=== PATIENT | female | born 1985 | race American Indian/Alaskan Native ===

== ENCOUNTER 2018-02-20 06:55 | Emergency (ER) | payer OTHER, MEDICAID ==
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
[2018-02-20 14:03] VITALS: BP 128/72
== END 2018-02-20 14:01 | disposition home or self-care (01) ==
LOC: ED 06:55
DX: O9A.212 Injury, poisoning and certain other consequences of external causes complicating pregnancy, second trimester (principal); S16.1XXA Strain of muscle, fascia and tendon at neck level, initial encounter; R10.9 Unspecified abdominal pain; Z3A.14 14 weeks gestation of pregnancy; V89.2XXA Person injured in unspecified motor-vehicle accident, traffic, initial encounter; Y93.89 Activity, other specified; Y92.488 Other paved roadways as the place of occurrence of the external cause; Y99.8 Other external cause status
CPT/HCPCS: 36415; 76805; 84702; 99284

== ENCOUNTER 2018-08-29 16:22 | Inpatient (IN) | payer MEDICAID ==
--- NOTE | 2018-08-29 16:48 | Emergency Department Report ---
ED Shortness of Breath HPI - General Chief Complaint: Dyspnea/Respdistress Stated Complaint: SOB/DELIVERED LAST WK Time Seen by Provider: 08/29/18 16:43 Source: patient Mode of arrival: Ambulatory Limitations: No Limitations - History of Present Illness Initial Comments: Patient is a 33-year-old female that presents emergent with complaints of chest pain and shortness of breath. Patient states that chest pain is a 2 out of 10 and is mild. Patient states chest pain is centered in her chest and nonradiating. Patient states it started 3 days ago and patient's been using her albuterol inhaler that she have from a previous illness with no relief. Patient states her chest pain and shortness of breath are better with rest and worse with exertion. Patient states that she recently had a baby on the of this month via that was unconjugated. Patient states that her symptoms are worsening. Patient states she came in because her symptoms are unmanageable. Patient denies fever and chills. Patient states she is breast-feeding. Patient denies history of asthma. MD Complaint: shortness of breath, chest pain -: Sudden Severity: mild Pain Scale: 2 Quality: aching Consistency: constant Improves With: rest Worsens With: exertion Associated Symptoms: chest pain Treatments Prior to Arrival: none - Related Data Home Oxygen Therapy: No Home Medications Medication Instructions Recorded Confirmed Last Taken Albuterol Sulfate [Albuterol 0.63% 0.63 mg IH QID PRN 08/29/18 08/29/18 Unknown NEBS] Allergies Allergy/AdvReac Type Severity Reaction Status Date / Time No Known Allergies Allergy Verified 10/04/15 22:08 ED Review of Systems ROS: Stated complaint: SOB/DELIVERED LAST WK Other details as noted in HPI Constitutional: denies: chills, fever Eyes: denies: eye pain, eye discharge, vision change ENT: denies: ear pain, throat pain Respiratory: shortness of breath, SOB with exertion, SOB at rest. denies: cough, wheezing Cardiovascular: chest pain. denies: palpitations Endocrine: no symptoms reported Gastrointestinal: denies: abdominal pain, nausea, diarrhea Genitourinary: denies: urgency, dysuria, discharge Musculoskeletal: denies: back pain, joint swelling, arthralgia Skin: denies: rash, lesions Neurological: denies: headache, weakness, paresthesias Psychiatric: denies: anxiety, depression Hematological/Lymphatic: denies: easy bleeding, easy bruising ED Past Medical Hx - Past Medical History Previous Medical History?: No Hx Hypertension: No Hx Heart Attack/AMI: No Hx Diabetes: No Hx Deep Vein Thrombosis: No Hx Liver Disease: No Hx Renal Disease: No Hx Sickle Cell Disease: No Hx Seizures: No Hx Asthma: No Hx COPD: No Hx HIV: No - Surgical History Past Surgical History?: Yes Hx Pacemaker: No Hx Internal Defibrillator: No Additional Surgical History: x 2 - Family History Family history: no significant - Social History Smoking Status: Never Smoker Substance Use Type: None - Medications Home Medications: Home Medications Medication Instructions Recorded Confirmed Last Taken Type Albuterol Sulfate [Albuterol 0.63% 0.63 mg IH QID PRN 08/29/18 08/29/18 Unknown History NEBS] ED Physical Exam - General Limitations: No Limitations General appearance: alert, in no apparent distress - Head Head exam: Present: atraumatic, normocephalic - Eye Eye exam: Present: normal appearance - ENT ENT exam: Present: mucous membranes moist - Neck Neck exam: Present: normal inspection - Respiratory Respiratory exam: Present: normal lung sounds bilaterally, rales. Absent: respiratory distress - Cardiovascular Cardiovascular Exam: Present: regular rate, normal rhythm. Absent: systolic murmur, diastolic murmur, rubs, gallop - GI/Abdominal GI/Abdominal exam: Present: soft, normal bowel sounds - Extremities Exam Extremities exam: Present: normal inspection - Back Exam Back exam: Present: normal inspection - Neurological Exam Neurological exam: Present: alert, oriented X3 - Psychiatric Psychiatric exam: Present: normal affect, normal mood - Skin Skin exam: Present: warm, dry, intact, normal color. Absent: rash ED Course Vital Signs 08/29/18 08/29/18 08/29/18 16:27 16:38 16:45 Temperature 98.6 F Pulse Rate 118 H 123 H 101 H Respiratory 20 22 30 H Rate Blood Pressure 160/104 148/95 O2 Sat by Pulse 90 Oximetry 08/29/18 08/29/18 08/29/18 17:00 17:15 17:31 Temperature Pulse Rate 100 H 97 H 107 H Respiratory 30 H 20 28 H Rate Blood Pressure 140/95 140/95 140/95 O2 Sat by Pulse Oximetry 08/29/18 08/29/18 08/29/18 17:45 18:00 18:15 Temperature Pulse Rate 103 H 94 H 100 H Respiratory 35 H 34 H 36 H Rate Blood Pressure 140/95 140/97 140/97 O2 Sat by Pulse Oximetry 08/29/18 08/29/18 08/29/18 18:31 18:45 19:01 Temperature Pulse Rate 102 H 101 H 107 H Respiratory 35 H 28 H 29 H Rate Blood Pressure 140/97 140/97 140/97 O2 Sat by Pulse 97 96 Oximetry 08/29/18 08/29/18 08/29/18 19:17 19:44 19:45 Temperature Pulse Rate 102 H 109 H 96 H Respiratory 26 H 18 36 H Rate Blood Pressure 140/97 140/97 134/80 O2 Sat by Pulse Oximetry 08/29/18 08/29/18 08/29/18 20:01 20:15 20:39 Temperature Pulse Rate 97 H 107 H Respiratory 34 H 41 H Rate Blood Pressure 134/80 134/80 134/80 O2 Sat by Pulse 97 99 95 Oximetry 08/29/18 08/29/18 08/29/18 20:45 21:51 22:01 Temperature Pulse Rate 98 H 91 H 96 H Respiratory 26 H 22 Rate Blood Pressure 134/80 134/80 134/80 O2 Sat by Pulse Oximetry 08/29/18 08/29/18 08/29/18 22:15 22:19 22:20 Temperature Pulse Rate 103 H 98 H 101 H Respiratory 14 25 H 28 H Rate Blood Pressure 134/80 134/80 134/80 O2 Sat by Pulse Oximetry 08/29/18 22:56 Temperature Pulse Rate 97 H Respiratory Rate Blood Pressure O2 Sat by Pulse Oximetry - Reevaluation(s) Reevaluation #1: Discussed all results with patient. Patient clinical findings consistent with CHF. Patient was given Lasix now. Patient agrees plan of care and admission. 08/29/18 18:29 - Consultations Consultation #1: Hospitalist consult. Hospitalist to assume care of patient and admit patient 08/29/18 18:24 ED Medical Decision Making - Lab Data Result diagrams: 08/30/18 04:54 08/30/18 04:54 - EKG Data -: EKG Interpreted by In EKG shows normal: sinus rhythm, axis, intervals, QRS complexes, ST-T waves Rate: normal - Radiology Data Radiology results: report reviewed FINAL REPORT EXAM: XR CHEST 1V AP HISTORY: Dyspnea upt ordered TECHNIQUE: Frontal portable view of the chest Comparison: None FINDINGS: There bilateral hypoinflation. There are bilateral areas of pulmonary consolidation that is most marked in the lung bases with possible right pleural fluid collection. The cardiomediastinal silhouette is obscured by the pulmonary disease. There appears to be prominence of the pulmonary venous vasculature suggestive of pulmonary venous congestion. The bony structures are unremarkable. Visualization detail of the thoracic spine is limited IMPRESSION: 1. Bilateral airspace process that is most marked in the lower lobes bilaterally with possible right pleural fluid collection and evidence of pulmonary venous congestion. Infectious and noninfectious etiologies, to include CHF, need to be considered. FINAL REPORT EXAM: CT ANGIO CHEST HISTORY: sob. cp. TECHNIQUE: Following IV administration of 100 cc of Omnipaque 350 axial helical imaging was performed through the chest with sagittal and coronal reformatted images and maximum intensity projection images obtained. Comparison: Chest x-ray also performed today FINDINGS: Visualization of fine detail is somewhat limited by artifact created by large body habitus. The study remains of diagnostic quality. There is a moderate size to large right pleural fluid collection and moderate size left pleural fluid collection. There are bilateral patchy areas of pulmonary consolidation. The heart is enlarged. The thoracic aorta is normal in appearance. No filling defects are demonstrated within the pulmonary arteries to suggest the presence of pulmonary artery emboli. There is prominence of the pulmonary venous vessels consistent with pulmonary venous congestion. The visualized portion the upper abdomen is unremarkable. The bony structures are unremarkable. IMPRESSION: 1. Large right pleural fluid collection, moderate size left pleural fluid collection, evidence of pulmonary venous congestion, bilateral areas of pulmonary consolidation and cardiomegaly. The above findings are most suggestive of CHF. An infectious component cannot entirely be excluded. 2. No evidence of pulmonary artery emboli. - Medical Decision Making Patient is a 33-year-old female that presents emergency room with shortness of breath and chest pain. Patient found to have elevated BNP cardiomyopathy and he HF changes on x-ray and CTA. CTA was negative for PE. Patient started on IV Lasix but pressure improved. Patient will also be started on magnesium to prevent eclampsia patient's clinical findings are consistent with preeclampsia: Lower extremity edema, high blood pressure.. Patient admitted to the hospitalist evaluation treatment. - Differential Diagnosis chf. hypertension. pe. Critical Care Time: Yes Critical care attestation.: If time is entered above; I have spent that time in minutes in the direct care of this critically ill patient, excluding procedure time. Critical Care Time: 45 minutes ED Disposition Clinical Impression: cardiomyopathy, Lower extremity edema, Preeclampsia in period, Elevated d-dimer CHF (congestive heart failure) Qualifiers: Heart failure type: unspecified Heart failure chronicity: acute Qualified Code(s): I50.9 - Heart failure, unspecified Pulmonary edema Qualifiers: Chronicity: acute Qualified Code(s): J81.0 - Acute pulmonary edema Hypertension Qualifiers: Hypertension type: essential hypertension Qualified Code(s): I10 - Essential (primary) hypertension Preeclampsia Qualifiers: Trimester: unspecified trimester Qualified Code(s): O14.90 - Unspecified pre- eclampsia, unspecified trimester Disposition: DC-09 OP ADMIT IP TO THIS HOSP Is pt being admited?: Yes Does the pt Need Aspirin: No Condition: Critical Time of Disposition: 19:47
[2018-08-29 17:22] LABS: Basophils % (Auto) 0.6 % (0.0-1.8); Eosinophils # (Auto) 0.2 K/mm3 (0.0-0.4); Eosinophils % (Auto) 2.7 % (0.0-4.3); Hematocrit 33.6 % (30.3-42.9); Hemoglobin 11.1 gm/dl (10.1-14.3); Lymphocytes # (Auto) 1.3 K/mm3 (1.2-5.4); Lymphocytes % (Auto) 18.9 % (13.4-35.0); Mean Corpuscular HGB Conc 33 % (30-34); Mean Corpuscular Volume 88 fl (79-97); Monocytes # (Auto) 0.6 K/mm3 (0.0-0.8); Platelet Count 290 K/mm3 (140-440); Red Blood Count 3.82 M/mm3 (3.65-5.03); Red Cell Distribution Width 14.3 % (13.2-15.2)
[2018-08-29 17:38] LABS: Creatine Kinase MB 2.2 ng/mL (0.0-4.0)
[2018-08-29 17:40] LABS: Alanine Aminotransferase 39 units/L (7-56); BUN/Creatinine Ratio 10; Blood Urea Nitrogen 9 mg/dL (7-17); Calcium 8.5 mg/dL (8.4-10.2); Hemolysis Index 0
--- NOTE | 2018-08-29 18:05 | XRay Report ---
FINAL REPORT EXAM: XR CHEST 1V AP HISTORY: Dyspnea upt ordered TECHNIQUE: Frontal portable view of the chest Comparison: None FINDINGS: There bilateral hypoinflation. There are bilateral areas of pulmonary consolidation that is most marked in the lung bases with possi ble right pleural fluid collection. The cardiomediastinal silhouette is obscured by the pulmonary disease. There appears to be prominence of the pulmonary venous vasculature suggestive of pulmonary venous con gestion. The bony structures are unremarkable. Visualization detail of the thoracic spine is limited IMPRESSION: 1. Bilateral airspace process that is most marked in the lower lobes bilaterally with possible right pleural fluid collection and evidence of pulmonary venous congestion. Infectious and noninfectious et iologies, to include CHF, need to be considered.
[2018-08-29] MEDS ORDERED: LASIX IV ONE (18:22)
--- NOTE | 2018-08-29 20:02 | Cat Scan Report ---
FINAL REPORT EXAM: CT ANGIO CHEST HISTORY: sob. cp. TECHNIQUE: Following IV administration of 100 cc of Omnipaque 350 axial helical imaging was performe d through the chest with sagittal and coronal reformatted images and maximum intensity projection dorita ges obtained. Comparison: Chest x-ray also performed today FINDINGS: Visualization of fine detail is somewhat limited by artifact created by large body habitus. The study remains of diagnostic quality. There is a moderate size to large right pleural fluid collection and moderate size left pleural fluid collection. There are bilateral patchy areas of pulmonary consolidation. The heart is enlarged. The thoracic aorta is normal in appearance. No filling defects are demonstrated within the pulmonary arteries to suggest the presence of pulmonar y artery emboli. There is prominence of the pulmonary venous vessels consistent with pulmonary venous congestion. The visualized portion the upper abdomen is unremarkable. The bony structures are unremarkable. IMPRESSION: 1. Large right pleural fluid collection, moderate size left pleural fluid collection, evidence of pul monary venous congestion, bilateral areas of pulmonary consolidation and cardiomegaly. The above findings are most suggestive of CHF. An infectious component cannot entirely be excluded. 2. No evidence of pulmonary artery emboli.
[2018-08-29] MEDS ORDERED: MAGNESIUM SULFATE 2GM/50ML 2 GM/50 ML BAG IV ONE ×2 (20:18→20:57)
[2018-08-29 20:30] LABS: Bilirubin,Urine NEG (Negative); Blood,Urine LG (Negative); Color,Urine Colorless (Yellow); Protein,Urine <15 mg/dL mg/dL (Negative); Urobilinogen,Urine < 2.0 mg/dL (<2.0)
[2018-08-29 20:38] LABS: Amphetamine Screen,Urine PRESUMPTIVE NEGATIVE; Benzodiazepines Screen,Urine PRESUMPTIVE NEGATIVE; Cannabinoid Screen,Urine PRESUMPTIVE NEGATIVE; Cocaine Screen,Urine PRESUMPTIVE NEGATIVE; Methadone Screen,Urine PRESUMPTIVE NEGATIVE; Opiate Screen,Urine PRESUMPTIVE NEGATIVE
--- NOTE | 2018-08-29 22:42 | History and Physical Report ---
History of Present Illness Date of examination: 08/29/18 Date of admission: 08/29/18 19:50 Chief complaint: Shortness of breath for 4-5 days History of present illness: 33-year-old -[place] female with no significant past medical history comes in for increasing shortness of breath over the last 4-5 days. Patient had a 1 week ago and gave to her third child. patient started developing shortness of breath for the last 4-5 days. Shortness of breath on minimal exertion and orthopnea present. Slight chest pain present. Patient has been using albuterol inhaler thinking that it is her asthma. Patient had on August 22. No fever or chills. Past Medical History Previous Medical History?: No Surgical History Past Surgical History?: Yes Hx Pacemaker: No Hx Internal Defibrillator: No Additional Surgical History: x 2 Family History Family history: no significant Social History Smoking Status: Never Smoker Substance Use Type: None - Medications Home Medications: Home Medications Medication Instructions Recorded Confirmed Last Taken Type Ibuprofen [Motrin 800 MG tab] 800 mg PO Q8HR PRN #30 tablet 10/04/15 08/22/18 08/22/18 Rx Implanon 1 dose SQ DAILY 10/04/15 08/22/18 10/04/15 History Multivitamin Tab [Multiple Vitamin 1 each PO QDAY 10/04/15 08/22/18 08/17/18 History TAB (Theragran)] Ibuprofen [Motrin] 800 mg PO Q8HR PRN #60 tablet 08/23/18 Unknown Rx oxyCODONE /ACETAMINOPHEN [Percocet 1 tab PO Q6HR PRN #30 tablet 08/23/18 Unknown Rx 5/325] Review of systems ROS: Stated complaint: SOB/DELIVERED LAST WK Other details as noted in HPI Constitutional: denies: chills, fever Eyes: denies: eye pain, eye discharge, vision change ENT: denies: ear pain, throat pain Respiratory: shortness of breath, SOB with exertion, SOB at rest. denies: cough, wheezing Cardiovascular: chest pain. denies: palpitations Endocrine: no symptoms reported Gastrointestinal: denies: abdominal pain, nausea, diarrhea Genitourinary: denies: urgency, dysuria, discharge Musculoskeletal: denies: back pain, joint swelling, arthralgia Skin: denies: rash, lesions Neurological: denies: headache, weakness, paresthesias Psychiatric: denies: anxiety, depression Hematological/Lymphatic: denies: easy bleeding, easy bruising Medications and Allergies Allergies Allergy/AdvReac Type Severity Reaction Status Date / Time No Known Allergies Allergy Verified 10/04/15 22:08 Home Medications Medication Instructions Recorded Confirmed Last Taken Type Albuterol Sulfate [Albuterol 0.63% 0.63 mg IH QID PRN 08/29/18 08/29/18 Unknown History NEBS] Exam - Constitutional Vitals: Temp Pulse Resp BP Pulse Ox 98.6 F 103 H 14 134/80 95 08/29/18 16:27 08/29/18 22:15 08/29/18 22:15 08/29/18 22:15 08/29/18 20:39 General appearance: Present: mild distress, well-nourished - EENT Eyes: Present: PERRL ENT: hearing intact, clear oral mucosa - Neck Neck: Present: supple, normal ROM - Respiratory Respiratory effort: normal Respiratory: bilateral: CTA, rales - Cardiovascular Heart rate: 86 Rhythm: regular Heart Sounds: Present: S1 & S2. Absent: rub, click - Extremities Extremities: pulses symmetrical, No edema Extremity abnormal: edema (2 plus) Peripheral Pulses: within normal limits - Abdominal General gastrointestinal: Present: soft, non-tender, non-distended, normal bowel sounds Female genitourinary: Present: normal - Integumentary Integumentary: Present: clear, warm, dry - Musculoskeletal Musculoskeletal: gait normal, strength equal bilaterally - Psychiatric Psychiatric: appropriate mood/affect, intact judgment & insight - Neurologic Neurologic: CNII-XII intact, moves all extremities Results - Labs CBC & Chem 7: 08/29/18 17:08 08/29/18 17:08 Labs: Laboratory Last Values WBC 6.9 K/mm3 (4.5-11.0) 08/29/18 17:08 RBC 3.82 M/mm3 (3.65-5.03) 08/29/18 17:08 Hgb 11.1 gm/dl (10.1-14.3) 08/29/18 17:08 Hct 33.6 % (30.3-42.9) 08/29/18 17:08 MCV 88 fl (79-97) 08/29/18 17:08 MCH 29 pg (28-32) 08/29/18 17:08 MCHC 33 % (30-34) 08/29/18 17:08 RDW 14.3 % (13.2-15.2) 08/29/18 17:08 Plt Count 290 K/mm3 (140-440) 08/29/18 17:08 Lymph % (Auto) 18.9 % (13.4-35.0) 08/29/18 17:08 [place] % (Auto) 8.0 % (0.0-7.3) H 08/29/18 17:08 Eos % (Auto) 2.7 % (0.0-4.3) 08/29/18 17:08 Baso % (Auto) 0.6 % (0.0-1.8) 08/29/18 17:08 Lymph # 1.3 K/mm3 (1.2-5.4) 08/29/18 17:08 [place] # 0.6 K/mm3 (0.0-0.8) 08/29/18 17:08 Eos # 0.2 K/mm3 (0.0-0.4) 08/29/18 17:08 Baso # 0.0 K/mm3 (0.0-0.1) 08/29/18 17:08 Seg Neutrophils % 69.8 % (40.0-70.0) 08/29/18 17:08 Seg Neutrophils # 4.8 K/mm3 (1.8-7.7) 08/29/18 17:08 D-Dimer 2981.99 ng/mlDDU (0-234) H 08/29/18 17:08 Sodium 143 mmol/L (137-145) 08/29/18 17:08 Potassium 4.1 mmol/L (3.6-5.0) 08/29/18 17:08 Chloride 104.7 mmol/L (98-107) 08/29/18 17:08 Carbon Dioxide 27 mmol/L (22-30) 08/29/18 17:08 Anion Gap 15 mmol/L 08/29/18 17:08 BUN 9 mg/dL (7-17) 08/29/18 17:08 Creatinine 0.9 mg/dL (0.7-1.2) 08/29/18 17:08 Estimated GFR > 60 ml/min 08/29/18 17:08 BUN/Creatinine Ratio 10 % 08/29/18 17:08 Glucose 84 mg/dL (65-100) 08/29/18 17:08 Lactic Acid 1.50 mmol/L (0.7-2.0) 08/29/18 17:08 Calcium 8.5 mg/dL (8.4-10.2) 08/29/18 17:08 Total Bilirubin 0.40 mg/dL (0.1-1.2) 08/29/18 17:08 AST 23 units/L (5-40) 08/29/18 17:08 ALT 39 units/L (7-56) 08/29/18 17:08 Alkaline Phosphatase 92 units/L (35-129) 08/29/18 17:08 Total Creatine Kinase 122 units/L (30-135) 08/29/18 17:08 CK-MB (CK-2) 2.2 ng/mL (0.0-4.0) 08/29/18 17:08 CK-MB (CK-2) Rel Index 1.8 (0-4) 08/29/18 17:08 Troponin T < 0.010 ng/mL (0.00-0.029) 08/29/18 17:08 NT-Pro-B Natriuret Pep 1032 pg/mL (0-450) H 08/29/18 17:08 Total Protein 6.4 g/dL (6.3-8.2) 08/29/18 17:08 Albumin 3.0 g/dL (3.9-5) L 08/29/18 17:08 Albumin/Globulin Ratio 0.9 % 08/29/18 17:08 Urine Color Colorless (Yellow) 08/29/18 20:02 Urine Turbidity Clear (Clear) 08/29/18 20:02 Urine pH 7.0 (5.0-7.0) 08/29/18 20:02 Ur Specific [place] 1.006 (1.003-1.030) 08/29/18 20:02 Urine Protein <15 mg/dl mg/dL (Negative) 08/29/18 20:02 Urine Glucose (UA) Neg mg/dL (Negative) 08/29/18 20:02 Urine Ketones Neg mg/dL (Negative) 08/29/18 20:02 Urine Blood Lg (Negative) 08/29/18 20:02 Urine Nitrite Neg (Negative) 08/29/18 20:02 Urine Bilirubin Neg (Negative) 08/29/18 20:02 Urine Urobilinogen < 2.0 mg/dL (<2.0) 08/29/18 20:02 Ur Leukocyte Esterase Tr (Negative) 08/29/18 20:02 Urine WBC (Auto) 2.0 /HPF (0.0-6.0) 08/29/18 20:02 Urine RBC (Auto) 31.0 /HPF (0.0-6.0) 08/29/18 20:02 U Epithel Cells (Auto) 1.0 /HPF (0-13.0) 08/29/18 20:02 Urine Opiates Screen Presumptive negative 08/29/18 20:02 Urine Methadone Screen Presumptive negative 08/29/18 20:02 Ur Barbiturates Screen Presumptive negative 08/29/18 20:02 Ur Phencyclidine Scrn Presumptive negative 08/29/18 20:02 Ur Amphetamines Screen Presumptive negative 08/29/18 20:02 U Benzodiazepines Scrn Presumptive negative 08/29/18 20:02 Urine Cocaine Screen Presumptive negative 08/29/18 20:02 U Marijuana (THC) Screen Presumptive negative 08/29/18 20:02 Drugs of Abuse Note Disclamer 08/29/18 20:02 Short CBC 08/29/18 Range/Units 17:08 WBC 6.9 (4.5-11.0) K/mm3 Hgb 11.1 (10.1-14.3) gm/dl Hct 33.6 (30.3-42.9) % Plt Count 290 (140-440) K/mm3 BMP 08/29/18 17:08 Sodium 143 Potassium 4.1 Chloride 104.7 Carbon Dioxide 27 BUN 9 Creatinine 0.9 Glucose 84 Calcium 8.5 Cardiac Enzymes 08/29/18 Range/Units 17:08 Total Creatine Kinase 122 (30-135) units/L CK-MB (CK-2) 2.2 (0.0-4.0) ng/mL Troponin T < 0.010 (0.00-0.029) ng/mL Liver Function 08/29/18 Range/Units 17:08 Total Bilirubin 0.40 (0.1-1.2) mg/dL AST 23 (5-40) units/L ALT 39 (7-56) units/L Alkaline Phosphatase 92 (35-129) units/L Albumin 3.0 L (3.9-5) g/dL Urine 08/29/18 Range/Units 20:02 Urine Color Colorless (Yellow) Urine pH 7.0 (5.0-7.0) Ur Specific [place] 1.006 (1.003-1.030) Urine Protein <15 mg/dl (Negative) mg/dL Urine Glucose (UA) Neg (Negative) mg/dL - Imaging and Cardiology EKG: report reviewed Imaging and Cardiology: CT angiogram chest IMPRESSION: 1. Large right pleural fluid collection, moderate size left pleural fluid col lection, evidence of pulmonary venous congestion, bilateral areas of pulmonary consolidation and ca rdiomegaly. The above findings are most suggestive of CHF. An infectious component cannot entirely be excluded. 2. No evidence of pulmonary artery emboli. Chest x-ray IMPRESSION: 1. Bilateral airspace process that is most marked in the lower lobes bilaterally with possible right pleural fluid collection and evidence of pulmonary venous congestion. Infectious and noninfectious etiologies, to include CHF, need to be considered. EKG Data EKG Interpreted by [facility] EKG shows normal: sinus rhythm, axis, intervals, QRS complexes, ST-T waves Rate: normal Assessment and Plan Advance Directives: Yes (full code) VTE prophylaxis?: Chemical Plan of care discussed with patient/family: Yes - Patient Problems (1) Acute exacerbation of CHF (congestive heart failure) Current Visit: Yes Status: Acute Qualifiers: Heart failure type: combined systolic and diastolic Qualified Code(s): I50.43 - Acute on chronic combined systolic (congestive) and diastolic (congestive) heart failure Plan to address problem: New onset CHF Possible cardiomyopathy We will get echocardiogram IV Lasix 40 mg every 12 Thoracentesis if necessary (2) Eclampsia Current Visit: Yes Status: Acute Plan to address problem: High possibility Patient on magnesium drip COLLATOR HAND consult (3) Elevated d-dimer Current Visit: Yes Status: Acute Plan to address problem: Pulmonary embolism ruled out (4) DVT prophylaxis Current Visit: Yes Status: Acute Plan to address problem: On Lovenox 40 mg subcutaneous daily and GI prophylaxis
[2018-08-29] MEDS ORDERED: TYLENOL PO PRN (23:09)
[2018-08-29] MEDS ORDERED: SODIUM CHLORIDE FLUSH SYRINGE 10 ML IV PRN (23:09)
[2018-08-29] MEDS ORDERED: ZOFRAN IV PRN (23:09)
[2018-08-29] MEDS ORDERED: DILAUDID IV PRN (23:09)
[2018-08-29] MEDS ORDERED: PERCOCET 5/325 PO PRN (23:09)
[2018-08-30] MEDS: K-DUR PO SCH ×3 (01:26→22:27)
[2018-08-30] MEDS: LASIX IV SCH ×2 (05:29→18:50)
[2018-08-30 06:14] LABS: Basophils % (Auto) 0.5 % (0.0-1.8); Eosinophils # (Auto) 0.2 K/mm3 (0.0-0.4); Eosinophils % (Auto) 2.6 % (0.0-4.3); Hematocrit 35.2 % (30.3-42.9); Hemoglobin 11.3 gm/dl (10.1-14.3); Lymphocytes # (Auto) 1.5 K/mm3 (1.2-5.4); Mean Corpuscular HGB Conc 32 % (30-34); Mean Corpuscular Volume 88 fl (79-97); Monocytes # (Auto) 0.8 K/mm3 (0.0-0.8); Monocytes % (Auto) 10.8 % (0.0-7.3); Platelet Count 329 K/mm3 (140-440); Red Blood Count 3.99 M/mm3 (3.65-5.03); Red Cell Distribution Width 14.4 % (13.2-15.2)
[2018-08-30 06:38] LABS: Alanine Aminotransferase 37 units/L (7-56); Albumin 2.9 g/dL (3.9-5); BUN/Creatinine Ratio 10; Blood Urea Nitrogen 9 mg/dL (7-17); Calcium 8.8 mg/dL (8.4-10.2); Hemolysis Index 3
[2018-08-30] MEDS: SODIUM CHLORIDE FLUSH SYRINGE 10 ML IV SCH ×2 (11:30→22:27)
[2018-08-30] MEDS: PEPCID PO SCH ×2 (11:30→22:26)
--- NOTE | 2018-08-30 11:34 | Consultation ---
History of Present Illness Consult date: 08/30/18 Requesting physician: GEMMA DAVIDSON Consult reason: congestive heart failure History of present illness: The patient delivered a baby by section 8 days ago. Four days ago, she developed progressive dyspnea with worsening leg edema and othopnea. She presented to the ER with worsening of symptoms. Chest CTA showed bilateral pleural effusions but no evidence of PE. Chest x-ray showed bilateral infiltrates and effusions. Past History Past Medical History: No medical history Past Surgical History: (x2), Other (Tubal ligation) Social history: other (has 3 children). denies: smoking, alcohol abuse Family history: no significant family history Medications and Allergies Allergies Allergy/AdvReac Type Severity Reaction Status Date / Time No Known Allergies Allergy Verified 10/04/15 22:08 Home Medications Medication Instructions Recorded Confirmed Last Taken Type Albuterol Sulfate [Albuterol 0.63% 0.63 mg IH QID PRN 08/29/18 08/29/18 Unknown History NEBS] Active Meds: Active Medications Acetaminophen (Tylenol) 650 mg PO Q4H PRN PRN Reason: Pain MILD(1-3)/Fever >100.5/MARTINEZ Famotidine (Pepcid) 20 mg PO BID [facility] Furosemide (Lasix) 40 mg IV 0600,1800 [facility] Last Admin: 08/30/18 05:29 Dose: 40 mg Documented by: Hydromorphone HCl (Dilaudid) 0.5 mg IV Q3H PRN PRN Reason: Pain , Severe (7-10) Ondansetron HCl (Zofran) 4 mg IV Q8H PRN PRN Reason: Nausea And Vomiting Oxycodone/Acetaminophen (Percocet 5/325) 1 tab PO Q6H PRN PRN Reason: Pain, Moderate (4-6) Potassium Chloride (K-Dur) 20 meq PO Q12HR [facility] Last Admin: 08/30/18 01:26 Dose: 20 meq Documented by: Sodium Chloride (Sodium Chloride Flush Syringe 10 Ml) 10 ml IV BID ARL[place] Sodium Chloride (Sodium Chloride Flush Syringe 10 Ml) 10 ml IV PRN PRN PRN Reason: LINE FLUSH Review of Systems Constitutional: no fever, no chills Ears, nose, mouth and throat: no ear pain, no ear discharge, no sore throat Cardiovascular: orthopnea, edema, dyspnea on exertion, no chest pain, no palpitations, no lightheadedness Respiratory: shortness of breath, dyspnea on exertion, no cough, no hemoptysis Gastrointestinal: no abdominal pain, no nausea, no vomiting, no diarrhea, no constipation Genitourinary Female: no dysuria, no urinary frequency Rectal: no pain, no bleeding Musculoskeletal: no neck stiffness, no neck pain, no myalgias Integumentary: no rash, no pruritis Neurological: no weakness, no parathesias, no headaches Endocrine: no cold intolerance, no heat intolerance Hematologic/Lymphatic: no easy bruising, no easy bleeding Allergic/Immunologic: no urticaria, no wheezing Physical Examination Vital Signs Last Vital Signs Temp 98.1 F 08/30/18 08:18 Pulse 107 H 08/30/18 08:18 Resp 20 08/30/18 08:18 BP 125/91 08/30/18 08:18 Pulse Ox 100 08/30/18 08:18 General appearance: no acute distress HEENT: Positive: EOMI, Normocephaly, Mucus Membranes Moist Neck: Positive: neck supple, trachea midline, JVD/HJR (elevated) Cardiac: Positive: Reg Rate and Rhythm, S1/S2, S3 Lungs: Positive: clear to auscultation Neuro: Positive: Grossly Intact Abdomen: Positive: Soft, Active Bowel Sounds. Negative: Tender Skin: Positive: Clear. Negative: Rash Musculoskeletal: Normal Range of Motion Extremities: Present: +2 Edema (pitting bilateral leg edema) Results 08/30/18 04:54 08/30/18 04:54 Cardiac Enzymes 08/29/18 08/29/18 08/30/18 Range/Units 17:08 17:08 04:54 AST 23 22 (5-40) units/L CK-MB (CK-2) 2.2 (0.0-4.0) ng/mL CBC 08/29/18 08/30/18 Range/Units 17:08 04:54 WBC 6.9 7.3 (4.5-11.0) K/mm3 RBC 3.82 3.99 (3.65-5.03) M/mm3 Hgb 11.1 11.3 (10.1-14.3) gm/dl Hct 33.6 35.2 (30.3-42.9) % Plt Count 290 329 (140-440) K/mm3 Lymph # 1.3 1.5 (1.2-5.4) K/mm3 [place] # 0.6 0.8 (0.0-0.8) K/mm3 Eos # 0.2 0.2 (0.0-0.4) K/mm3 Baso # 0.0 0.0 (0.0-0.1) K/mm3 Comprehensive Metabolic Panel 08/29/18 08/30/18 Range/Units 17:08 04:54 Sodium 143 144 (137-145) mmol/L Potassium 4.1 3.9 (3.6-5.0) mmol/L Chloride 104.7 103.0 (98-107) mmol/L Carbon Dioxide 27 29 (22-30) mmol/L BUN 9 9 (7-17) mg/dL Creatinine 0.9 0.9 (0.7-1.2) mg/dL Glucose 84 89 (65-100) mg/dL Calcium 8.5 8.8 (8.4-10.2) mg/dL AST 23 22 (5-40) units/L ALT 39 37 (7-56) units/L Alkaline Phosphatase 92 95 (35-129) units/L Total Protein 6.4 6.6 (6.3-8.2) g/dL Albumin 3.0 L 2.9 L (3.9-5) g/dL - Imaging and Cardiology EKG: image reviewed EKG interpretations - Telemetry EKG Rhythm: Sinus Tachycardia - EKG Sinus rhythms and dysrhythmias: sinus tachycardia Assessment and Plan The patient claims that she will not be breast-feeding her baby. As such, guideline directed heart failure therapies will be initiated. We have discussed the need to avoid future . She claims that she has undergone tubal ligation already. - Patient Problems (1) Acute HFrEF (heart failure with reduced ejection fraction) Current Visit: Yes Status: Acute (2) cardiomyopathy Current Visit: Yes Status: Acute (3) Hypertension Current Visit: Yes Status: Acute (4) delivery delivered Current Visit: Yes Status: Acute (5) Morbid obesity Current Visit: Yes Status: Chronic
[2018-08-30] MEDS: COREG PO SCH ×2 (12:35→22:26)
[2018-08-30] MEDS: ZESTRIL PO SCH ×2 (12:36→22:26)
--- NOTE | 2018-08-30 13:19 | Progress Note ---
Assessment and Plan - Patient Problems (1) cardiomyopathy Current Visit: Yes Status: Acute Plan to address problem: continue support care for cardiac status patient had a tubal ligation performed at the time of the will defer to cardiology for further management Subjective - Subjective Date of service: 08/30/18 Principal diagnosis: cardiomyopathy Interval history: 33y/o s/p repeat delivery presents with the complaint of shortness of breath. Patient found to have bilateral pleural effusions. Clinically consistent with cardiomyopathy. The patient states she feels better today. Breathing is not labored. Currently normotensive. Patient reports: appetite normal, voiding normally, pain well controlled Objective - Vital Signs Latest vital signs: Vital Signs Temp Pulse Resp BP Pulse Ox 08/30/18 12:36 107 H 125/91 08/30/18 12:35 107 H 125/91 08/30/18 08:18 98.1 F 107 H 20 125/91 100 08/30/18 04:26 97.8 F 120 H 17 155/99 100 08/30/18 00:27 98.0 F 94 H 17 139/92 100 08/29/18 22:56 97 H 08/29/18 22:20 101 H 28 H 134/80 08/29/18 22:19 98 H 25 H 134/80 08/29/18 22:15 103 H 14 134/80 08/29/18 22:01 96 H 22 134/80 08/29/18 21:51 91 H 134/80 08/29/18 20:45 98 H 26 H 134/80 08/29/18 20:39 134/80 95 08/29/18 20:15 107 H 41 H 134/80 99 08/29/18 20:01 97 H 34 H 134/80 97 08/29/18 19:45 96 H 36 H 134/80 08/29/18 19:44 109 H 18 140/97 08/29/18 19:17 102 H 26 H 140/97 08/29/18 19:01 107 H 29 H 140/97 96 08/29/18 18:45 101 H 28 H 140/97 97 08/29/18 18:31 102 H 35 H 140/97 08/29/18 18:15 100 H 36 H 140/97 08/29/18 18:00 94 H 34 H 140/97 08/29/18 17:45 103 H 35 H 140/95 08/29/18 17:31 107 H 28 H 140/95 08/29/18 17:15 97 H 20 140/95 08/29/18 17:00 100 H 30 H 140/95 08/29/18 16:45 101 H 30 H 148/95 08/29/18 16:38 123 H 22 08/29/18 16:27 98.6 F 118 H 20 160/104 90 Intake and Output 08/29/18 08/30/18 08/30/18 22:59 06:59 14:59 Intake Total 240 Output Total 200 Balance 40 Intake: Oral 240 Output: Urine 200 Void 200 Other: Total, Intake Amount 240 Total, Output Amount 200 Voiding Method Toilet # Voids Void 1 # Bowel Movements 0 Weight 110.1 kg - Exam Abdomen: Present: normal appearance, soft - Labs Labs: Abnormal lab results 08/29/18 08/29/18 08/29/18 Range/Units 17:08 17:08 17:08 [place] % (Auto) 8.0 H (0.0-7.3) % D-Dimer 2981.99 H (0-234) ng/mlDDU Hemoglobin A1c (4-6) % NT-Pro-B Natriuret Pep (0-450) pg/mL Albumin 3.0 L (3.9-5) g/dL 08/29/18 08/29/18 08/30/18 Range/Units 17:08 23:30 04:54 [place] % (Auto) 10.8 H (0.0-7.3) % D-Dimer (0-234) ng/mlDDU Hemoglobin A1c 6.4 H (4-6) % NT-Pro-B Natriuret Pep 1032 H (0-450) pg/mL Albumin (3.9-5) g/dL 08/30/18 Range/Units 04:54 [place] % (Auto) (0.0-7.3) % D-Dimer (0-234) ng/mlDDU Hemoglobin A1c (4-6) % NT-Pro-B Natriuret Pep (0-450) pg/mL Albumin 2.9 L (3.9-5) g/dL
--- NOTE | 2018-08-30 15:14 | Progress Note ---
Assessment and Plan Assessment and plan: cardiomyopathy Acute systolic CHF Bilateral pleural effusion likely due to the above - Echo was done and ejection fraction is 30-35% - Patient is on IV Lasix, carvedilol and lisinopril - Patient still has some shortness of breath - Cardiology consult appreciated DVT prophylaxis - On Lovenox Disposition - per clinical course History Interval history: Patient was seen and evaluated this morning, shortness of breath getting better. Hospitalist Physical - Physical exam Narrative exam: Not in cardiopulmonary distress. The patient appeared well nourished and normally developed. Vital signs as documented. Head exam is unremarkable. No scleral icterus . Neck is without jugular venous distension, thyromegaly, or carotid bruits. Lungs are bibasilar rales Cardiac exam reveals regular rate and Rhythm. First and second heart sounds normal. No murmurs, rubs or gallops. Abdominal exam reveals normal bowel sounds, no masses, no organomegaly and no aortic enlargement. Extremities +2 pedal and pretibial edema. DELIVERY ROOM SUPERVISOR: Alert and oriented 3. No focal weakness. - Constitutional Vitals: Temp Pulse Resp BP Pulse Ox 99.6 F 103 H 18 133/87 95 08/30/18 12:50 08/30/18 12:50 08/30/18 12:50 08/30/18 12:50 08/30/18 12:50 General appearance: Present: no acute distress Results - Labs CBC & Chem 7: 08/30/18 04:54 08/30/18 04:54 Labs: Laboratory Last Values WBC 7.3 K/mm3 (4.5-11.0) 08/30/18 04:54 RBC 3.99 M/mm3 (3.65-5.03) 08/30/18 04:54 Hgb 11.3 gm/dl (10.1-14.3) 08/30/18 04:54 Hct 35.2 % (30.3-42.9) 08/30/18 04:54 MCV 88 fl (79-97) 08/30/18 04:54 MCH 28 pg (28-32) 08/30/18 04:54 MCHC 32 % (30-34) 08/30/18 04:54 RDW 14.4 % (13.2-15.2) 08/30/18 04:54 Plt Count 329 K/mm3 (140-440) 08/30/18 04:54 Lymph % (Auto) 21.0 % (13.4-35.0) 08/30/18 04:54 [place] % (Auto) 10.8 % (0.0-7.3) H 08/30/18 04:54 Eos % (Auto) 2.6 % (0.0-4.3) 08/30/18 04:54 Baso % (Auto) 0.5 % (0.0-1.8) 08/30/18 04:54 Lymph # 1.5 K/mm3 (1.2-5.4) 08/30/18 04:54 [place] # 0.8 K/mm3 (0.0-0.8) 08/30/18 04:54 Eos # 0.2 K/mm3 (0.0-0.4) 08/30/18 04:54 Baso # 0.0 K/mm3 (0.0-0.1) 08/30/18 04:54 Seg Neutrophils % 65.1 % (40.0-70.0) 08/30/18 04:54 Seg Neutrophils # 4.8 K/mm3 (1.8-7.7) 08/30/18 04:54 D-Dimer 2981.99 ng/mlDDU (0-234) H 08/29/18 17:08 Sodium 144 mmol/L (137-145) 08/30/18 04:54 Potassium 3.9 mmol/L (3.6-5.0) 08/30/18 04:54 Chloride 103.0 mmol/L (98-107) 08/30/18 04:54 Carbon Dioxide 29 mmol/L (22-30) 08/30/18 04:54 Anion Gap 16 mmol/L 08/30/18 04:54 BUN 9 mg/dL (7-17) 08/30/18 04:54 Creatinine 0.9 mg/dL (0.7-1.2) 08/30/18 04:54 Estimated GFR > 60 ml/min 08/30/18 04:54 BUN/Creatinine Ratio 10 % 08/30/18 04:54 Glucose 89 mg/dL (65-100) 08/30/18 04:54 Hemoglobin A1c 6.4 % (4-6) H 08/29/18 23:30 Lactic Acid 1.50 mmol/L (0.7-2.0) 08/29/18 17:08 Calcium 8.8 mg/dL (8.4-10.2) 08/30/18 04:54 Total Bilirubin 0.40 mg/dL (0.1-1.2) 08/30/18 04:54 AST 22 units/L (5-40) 08/30/18 04:54 ALT 37 units/L (7-56) 08/30/18 04:54 Alkaline Phosphatase 95 units/L (35-129) 08/30/18 04:54 Total Creatine Kinase 122 units/L (30-135) 08/29/18 17:08 CK-MB (CK-2) 2.2 ng/mL (0.0-4.0) 08/29/18 17:08 CK-MB (CK-2) Rel Index 1.8 (0-4) 08/29/18 17:08 Troponin T < 0.010 ng/mL (0.00-0.029) 08/29/18 17:08 NT-Pro-B Natriuret Pep 1032 pg/mL (0-450) H 08/29/18 17:08 Total Protein 6.6 g/dL (6.3-8.2) 08/30/18 04:54 Albumin 2.9 g/dL (3.9-5) L 08/30/18 04:54 Albumin/Globulin Ratio 0.8 % 08/30/18 04:54 Urine Color Colorless (Yellow) 08/29/18 20:02 Urine Turbidity Clear (Clear) 08/29/18 20:02 Urine pH 7.0 (5.0-7.0) 08/29/18 20:02 Ur Specific [place] 1.006 (1.003-1.030) 08/29/18 20:02 Urine Protein <15 mg/dl mg/dL (Negative) 08/29/18 20:02 Urine Glucose (UA) Neg mg/dL (Negative) 08/29/18 20:02 Urine Ketones Neg mg/dL (Negative) 08/29/18 20:02 Urine Blood Lg (Negative) 08/29/18 20:02 Urine Nitrite Neg (Negative) 08/29/18 20:02 Urine Bilirubin Neg (Negative) 08/29/18 20:02 Urine Urobilinogen < 2.0 mg/dL (<2.0) 08/29/18 20:02 Ur Leukocyte Esterase Tr (Negative) 08/29/18 20:02 Urine WBC (Auto) 2.0 /HPF (0.0-6.0) 08/29/18 20:02 Urine RBC (Auto) 31.0 /HPF (0.0-6.0) 08/29/18 20:02 U Epithel Cells (Auto) 1.0 /HPF (0-13.0) 08/29/18 20:02 Urine Opiates Screen Presumptive negative 08/29/18 20:02 Urine Methadone Screen Presumptive negative 08/29/18 20:02 Ur Barbiturates Screen Presumptive negative 08/29/18 20:02 Ur Phencyclidine Scrn Presumptive negative 08/29/18 20:02 Ur Amphetamines Screen Presumptive negative 08/29/18 20:02 U Benzodiazepines Scrn Presumptive negative 08/29/18 20:02 Urine Cocaine Screen Presumptive negative 08/29/18 20:02 U Marijuana (THC) Screen Presumptive negative 08/29/18 20:02 Drugs of Abuse Note Disclamer 08/29/18 20:02
[2018-08-31 06:05] LABS: BUN/Creatinine Ratio 11; Blood Urea Nitrogen 12 mg/dL (7-17); Calcium 8.7 mg/dL (8.4-10.2); Hemolysis Index 7
[2018-08-31] MEDS: LASIX IV SCH ×2 (06:08→19:05)
--- NOTE | 2018-08-31 08:27 | XRay Report ---
PORTABLE CHEST INDICATION: CHF. COMPARISON: 08/29/2018 FINDINGS: Portable, frontal chest radiograph demonstrates improved congestive bilateral pulmonary opacities with now well-visualized hemidiaphragms. Mild left retrocardiac opacity medially may though remain. Subtle residual pleural fluid as blunting the right lateral costophrenic angle also not excluded. Mild cardiomegaly. EKG leads. Intact bones. CONCLUSION: Cardiomegaly noted with resolving CHF, as described. Please correlate. Thank you for the opportunity to participate in this patient's care.
--- NOTE | 2018-08-31 10:16 | Progress Note ---
Assessment and Plan Echo reviewed - EF 30-35%, mod to severe MR, mild TR, mod pulm HTN with RVSP 51mmHg, mod pleural effusion. Optimize HR - increase coreg dosage. Continue lisinopril. Cont IV lasix BID. The patient claims that she will not be breast-feeding her baby. As such, continue guideline directed heart failure therapies. We have discussed the need to avoid future . She claims that she has undergone tubal ligation already. Possible d/c home as early as tomorrow. The patient has been seen in conjunction with Dr. Foreman who agrees with the assessment and plan of care. - Patient Problems (1) Acute HFrEF (heart failure with reduced ejection fraction) Current Visit: Yes Status: Acute (2) cardiomyopathy Current Visit: Yes Status: Acute (3) Sinus tachycardia Current Visit: Yes Status: Acute (4) Hypertension Current Visit: Yes Status: Chronic Qualifiers: Hypertension type: essential hypertension Qualified Code(s): I10 - Essential (primary) hypertension (5) delivery delivered Current Visit: Yes Status: Acute (6) Morbid obesity Current Visit: Yes Status: Chronic (7) Mitral regurgitation Current Visit: Yes Status: Chronic (8) Pulmonary hypertension Current Visit: Yes Status: Chronic Subjective Date of service: 08/31/18 Principal diagnosis: cardiomyopathy Interval history: pt resting in bed, states she is feeling much better today. tele reviewed - ST HR 110. Objective Last Vital Signs Temp 98.6 F 08/31/18 07:53 Pulse 109 H 08/31/18 07:53 Resp 18 08/31/18 07:53 BP 113/81 08/31/18 07:53 Pulse Ox 94 08/31/18 07:53 - Physical Examination General: No Apparent Distress HEENT: Positive: EOMI, Normocephaly, Mucus Membranes Moist Neck: Positive: neck supple, trachea midline, JVD/HJR (elevated) Cardiac: Positive: Regular Rhythm, S1/S2 Lungs: Positive: Decreased Breath Sounds Neuro: Positive: Grossly Intact Abdomen: Positive: Soft, Active Bowel Sounds. Negative: Tender Skin: Positive: Clear. Negative: Rash Musculoskeletal: Normal Range of Motion Extremities: Present: +2 Edema (pitting bilateral leg edema) - Labs and Meds Comprehensive Metabolic Panel 08/31/18 Range/Units 04:39 Sodium 143 (137-145) mmol/L Potassium 3.8 (3.6-5.0) mmol/L Chloride 98.7 (98-107) mmol/L Carbon Dioxide 31 H (22-30) mmol/L BUN 12 (7-17) mg/dL Creatinine 1.1 (0.7-1.2) mg/dL Glucose 100 (65-100) mg/dL Calcium 8.7 (8.4-10.2) mg/dL - Imaging and Cardiology EKG: image reviewed - Telemetry EKG Rhythm: Sinus Tachycardia - EKG Sinus rhythms and dysrhythmias: sinus tachycardia
[2018-08-31] MEDS: PEPCID PO SCH ×2 (10:21→21:35)
[2018-08-31] MEDS: K-DUR PO SCH ×2 (10:55→21:33)
[2018-08-31] MEDS: SODIUM CHLORIDE FLUSH SYRINGE 10 ML IV SCH ×2 (10:55→21:34)
--- NOTE | 2018-08-31 14:02 | Progress Note ---
Assessment and Plan A/p POD from repeat csec and BTL doing well available for any consultation regarding patient if discharged patient to come to clinic in 1 weeks for post op check thank you for the consult Subjective - Subjective Date of service: 08/31/18 Principal diagnosis: cardiomyopathy Patient reports: appetite normal, voiding normally, pain well controlled, ambulating normally Objective - Vital Signs Latest vital signs: Vital Signs Temp Pulse Resp BP Pulse Ox 08/31/18 07:53 98.6 F 109 H 18 113/81 94 08/31/18 07:09 97 08/31/18 06:23 98.6 F 104 H 17 124/93 94 08/31/18 01:18 32.1 F L 99 H 18 129/87 94 08/30/18 23:38 107 H 08/30/18 21:23 98.7 F 101 H 17 130/94 96 08/30/18 15:22 98.5 F 107 H 18 130/91 97 Intake and Output 08/30/18 08/31/18 08/31/18 23:59 07:59 15:59 Intake Total 1000 Output Total 24731 1900 Balance -9550 -1900 Intake: Oral 1000 Output: Urine 64616 1900 Void 77415 1900 Other: Total, Intake Amount 200 Total, Output Amount 94036 900 Voiding Method Toilet # Voids 1 Void 1 # Urine Diapers 0 # Bowel Movements 0 - Exam Breasts: Present: normal Cardiovascular: Present: Regular rate, Normal S1 Lungs: Present: Clear to auscultation, Normal air movement Abdomen: Present: normal appearance, soft, normal bowel sounds. Absent: distention, tenderness, guarding Uterus: Present: normal, firm, fundal height below umbilicus. Absent: bogginess, tenderness Extremities: Present: normal Deep Tendon Reflex Grade: Normal +2 Incision: Present: normal, dry, intact - Labs Labs: Abnormal lab results 08/31/18 Range/Units 04:39 Carbon Dioxide 31 H (22-30) mmol/L
--- NOTE | 2018-08-31 15:05 | Progress Note ---
Assessment and Plan Assessment and plan: cardiomyopathy Acute systolic CHF Bilateral pleural effusion likely due to the above - Echo was done and ejection fraction is 30-35% - Patient is on IV Lasix, carvedilol and lisinopril; patient plans no breast feeding and had - Patient still has some shortness of breath - Cardiology consulted - CXR showed marked improvement in vascular congestion and pleural effusion DVT prophylaxis - On Lovenox Disposition - Discharge in AM History Interval history: Patient was seen and evaluated this morning, shortness of breath getting better. Hospitalist Physical - Physical exam Narrative exam: Not in cardiopulmonary distress. The patient appeared well nourished and normally developed. Vital signs as documented. Head exam is unremarkable. No scleral icterus . Neck is without jugular venous distension, thyromegaly, or carotid bruits. Lungs are bibasilar rales Cardiac exam reveals regular rate and Rhythm. First and second heart sounds normal. No murmurs, rubs or gallops. Abdominal exam reveals normal bowel sounds, no masses, no organomegaly and no aortic enlargement. Extremities +1 pedal and pretibial edema. [employer]: Alert and oriented 3. No focal weakness. - Constitutional Vitals: Temp Pulse Resp BP Pulse Ox 98.6 F 109 H 18 113/81 94 08/31/18 07:53 08/31/18 07:53 08/31/18 07:53 08/31/18 07:53 08/31/18 07:53 General appearance: Present: no acute distress Results - Labs CBC & Chem 7: 08/30/18 04:54 08/31/18 04:39 Labs: Laboratory Last Values WBC 7.3 K/mm3 (4.5-11.0) 08/30/18 04:54 RBC 3.99 M/mm3 (3.65-5.03) 08/30/18 04:54 Hgb 11.3 gm/dl (10.1-14.3) 08/30/18 04:54 Hct 35.2 % (30.3-42.9) 08/30/18 04:54 MCV 88 fl (79-97) 08/30/18 04:54 MCH 28 pg (28-32) 08/30/18 04:54 MCHC 32 % (30-34) 08/30/18 04:54 RDW 14.4 % (13.2-15.2) 08/30/18 04:54 Plt Count 329 K/mm3 (140-440) 08/30/18 04:54 Lymph % (Auto) 21.0 % (13.4-35.0) 08/30/18 04:54 [place] % (Auto) 10.8 % (0.0-7.3) H 08/30/18 04:54 Eos % (Auto) 2.6 % (0.0-4.3) 08/30/18 04:54 Baso % (Auto) 0.5 % (0.0-1.8) 08/30/18 04:54 Lymph # 1.5 K/mm3 (1.2-5.4) 08/30/18 04:54 [place] # 0.8 K/mm3 (0.0-0.8) 08/30/18 04:54 Eos # 0.2 K/mm3 (0.0-0.4) 08/30/18 04:54 Baso # 0.0 K/mm3 (0.0-0.1) 08/30/18 04:54 Seg Neutrophils % 65.1 % (40.0-70.0) 08/30/18 04:54 Seg Neutrophils # 4.8 K/mm3 (1.8-7.7) 08/30/18 04:54 D-Dimer 2981.99 ng/mlDDU (0-234) H 08/29/18 17:08 Sodium 143 mmol/L (137-145) 08/31/18 04:39 Potassium 3.8 mmol/L (3.6-5.0) 08/31/18 04:39 Chloride 98.7 mmol/L (98-107) 08/31/18 04:39 Carbon Dioxide 31 mmol/L (22-30) H 08/31/18 04:39 Anion Gap 17 mmol/L 08/31/18 04:39 BUN 12 mg/dL (7-17) 08/31/18 04:39 Creatinine 1.1 mg/dL (0.7-1.2) 08/31/18 04:39 Estimated GFR > 60 ml/min 08/31/18 04:39 BUN/Creatinine Ratio 11 % 08/31/18 04:39 Glucose 100 mg/dL (65-100) 08/31/18 04:39 Hemoglobin A1c 6.4 % (4-6) H 08/29/18 23:30 Lactic Acid 1.50 mmol/L (0.7-2.0) 08/29/18 17:08 Calcium 8.7 mg/dL (8.4-10.2) 08/31/18 04:39 Total Bilirubin 0.40 mg/dL (0.1-1.2) 08/30/18 04:54 AST 22 units/L (5-40) 08/30/18 04:54 ALT 37 units/L (7-56) 08/30/18 04:54 Alkaline Phosphatase 95 units/L (35-129) 08/30/18 04:54 Total Creatine Kinase 122 units/L (30-135) 08/29/18 17:08 CK-MB (CK-2) 2.2 ng/mL (0.0-4.0) 08/29/18 17:08 CK-MB (CK-2) Rel Index 1.8 (0-4) 08/29/18 17:08 Troponin T < 0.010 ng/mL (0.00-0.029) 08/29/18 17:08 NT-Pro-B Natriuret Pep 1032 pg/mL (0-450) H 08/29/18 17:08 Total Protein 6.6 g/dL (6.3-8.2) 08/30/18 04:54 Albumin 2.9 g/dL (3.9-5) L 08/30/18 04:54 Albumin/Globulin Ratio 0.8 % 08/30/18 04:54 Urine Color Colorless (Yellow) 08/29/18 20:02 Urine Turbidity Clear (Clear) 08/29/18 20:02 Urine pH 7.0 (5.0-7.0) 08/29/18 20:02 Ur Specific [place] 1.006 (1.003-1.030) 08/29/18 20:02 Urine Protein <15 mg/dl mg/dL (Negative) 08/29/18 20:02 Urine Glucose (UA) Neg mg/dL (Negative) 08/29/18 20:02 Urine Ketones Neg mg/dL (Negative) 08/29/18 20:02 Urine Blood Lg (Negative) 08/29/18 20:02 Urine Nitrite Neg (Negative) 08/29/18 20:02 Urine Bilirubin Neg (Negative) 08/29/18 20:02 Urine Urobilinogen < 2.0 mg/dL (<2.0) 08/29/18 20:02 Ur Leukocyte Esterase Tr (Negative) 08/29/18 20:02 Urine WBC (Auto) 2.0 /HPF (0.0-6.0) 08/29/18 20:02 Urine RBC (Auto) 31.0 /HPF (0.0-6.0) 08/29/18 20:02 U Epithel Cells (Auto) 1.0 /HPF (0-13.0) 08/29/18 20:02 Urine Opiates Screen Presumptive negative 08/29/18 20:02 Urine Methadone Screen Presumptive negative 08/29/18 20:02 Ur Barbiturates Screen Presumptive negative 08/29/18 20:02 Ur Phencyclidine Scrn Presumptive negative 08/29/18 20:02 Ur Amphetamines Screen Presumptive negative 08/29/18 20:02 U Benzodiazepines Scrn Presumptive negative 08/29/18 20:02 Urine Cocaine Screen Presumptive negative 08/29/18 20:02 U Marijuana (THC) Screen Presumptive negative 08/29/18 20:02 Drugs of Abuse Note Disclamer 08/29/18 20:02
[2018-08-31] MEDS: COREG PO SCH ×2 (15:06→21:35)
[2018-08-31] MEDS: ZESTRIL PO SCH (15:08)
[2018-08-31] MEDS ORDERED: FLEET MINERAL OIL PR ONE (21:44)
[2018-09-01] MEDS: LASIX IV SCH ×2 (05:55→17:21)
[2018-09-01 06:01] LABS: BUN/Creatinine Ratio 15; Blood Urea Nitrogen 17 mg/dL (7-17); Calcium 8.1 mg/dL (8.4-10.2); Hemolysis Index 160
[2018-09-01] MEDS: COREG PO SCH ×3 (07:16→21:55)
[2018-09-01] MEDS: ZESTRIL PO SCH (10:05)
[2018-09-01] MEDS: PEPCID PO SCH ×2 (10:05→21:55)
[2018-09-01] MEDS: K-DUR PO SCH ×2 (10:05→21:55)
[2018-09-01] MEDS: SODIUM CHLORIDE FLUSH SYRINGE 10 ML IV SCH ×2 (10:06→21:55)
--- NOTE | 2018-09-01 10:59 | Progress Note ---
Assessment and Plan cardiomyopathy Acute systolic CHF Bilateral pleural effusion likely due to the above - Echo was done and ejection fraction is 30-35% - Patient is on IV Lasix, carvedilol and lisinopril - Patient still has some shortness of breath - Cardiology consult appreciated DVT prophylaxis - On Lovenox Disposition - per clinical course 09/01/2018>patient clinically getteng better,still ni mild sinus tachycardia,continue present rx. Subjective Date of service: 09/01/18 Principal diagnosis: cardiomyopathy Interval history: Patient is feeling better,telemetryshowing mild sinus tachycardia. Objective Vital Signs Temp Pulse Resp BP Pulse Ox 09/01/18 08:04 110 H 09/01/18 07:34 98.5 F 114 H 24 92/58 92 09/01/18 04:51 99.2 F 110 H 16 112/74 90 08/31/18 23:44 99.5 F 116 H 16 111/75 89 08/31/18 21:35 118 H 135/91 08/31/18 21:17 116 H 08/31/18 19:57 98.1 F 56 L 16 135/91 94 08/31/18 15:00 98 H - Physical Examination General: No Apparent Distress HEENT: Positive: EOMI, Normocephaly, Mucus Membranes Moist Neck: Positive: neck supple, trachea midline, JVD/HJR (elevated) Cardiac: Positive: Regular Rhythm, S3 Neuro: Positive: Grossly Intact Abdomen: Positive: Soft, Active Bowel Sounds. Negative: Tender Skin: Positive: Clear. Negative: Rash Musculoskeletal: Normal Range of Motion Extremities: Present: +2 Edema (pitting bilateral leg edema) - Labs and Meds Comprehensive Metabolic Panel 09/01/18 Range/Units 04:39 Sodium 139 (137-145) mmol/L Potassium 4.7 D (3.6-5.0) mmol/L Chloride 97.3 L (98-107) mmol/L Carbon Dioxide 25 (22-30) mmol/L BUN 17 (7-17) mg/dL Creatinine 1.1 (0.7-1.2) mg/dL Glucose 108 H (65-100) mg/dL Calcium 8.1 L (8.4-10.2) mg/dL - Imaging and Cardiology EKG: image reviewed - EKG Sinus rhythms and dysrhythmias: sinus tachycardia
[2018-09-01] MEDS ORDERED: CITRATE OF MAGNESIA PO ONE (12:00)
[2018-09-01] MEDS ORDERED: COLACE PO ONE (12:00)
--- NOTE | 2018-09-01 12:28 | Progress Note ---
Assessment and Plan Acute systolic CHF - Echo was done and ejection fraction is 30-35% - Patient is on IV Lasix, carvedilol and lisinopril; - Patient still has some shortness of breath - Cardiology consulted - CXR showed marked improvement in vascular congestion and pleural effusion - Discussed with weaver dobby loom who advised that patient should be monitored for 24 hours because of tachycardia and associated shortness of breath on exertion cardiomyopathy -Management of above Bilateral pleural effusion likely due to the above DVT prophylaxis - On Lovenox Disposition: Per clinical course. Likely will be discharged in the next in for 48 hours Subjective Date of service: 09/01/18 Principal diagnosis: cardiomyopathy, acute systolic heart failure Interval history: Having shortness of breath. Denies any chest pain. Has orthopnea. Objective - Exam Narrative Exam: Constitutional: Well-nourished well-developed. In no distress Head: Normocephalic atraumatic Eyes: Pupils are equal round and reactive to light Nose: No enlarged turbinates, no septal deviation. Mouth: Moist mucous membranes. Neck: Supple no thyromegaly. No bruit. No JVD Heart: Regular rate and rhythm, S1-S2 normal. No rubs murmurs or gallop Lungs: Clear to auscultation bilaterally. no rales or rhonchi Abdomen: Soft, nontender. Bowel sound are present. Extremities: 1+ edema , no cyanosis, no clubbing. Neuro: Alert oriented Oriented x3. No focal sensory or motor deficit. Skin: No rashes or hyperpigmented spots Musculoskeletal system: No joint pain or swelling Hematological: No petechia or subcutanous hemorrhages. Immunological: No multiple septic spots on the skin Lymphatic: No generalized lymphadenopathy Psychiatry: Euthymic. Calm. - Constitutional Vitals: Vital Signs - 12hr 09/01/18 09/01/18 09/01/18 04:51 07:34 08:04 Temperature 99.2 F 98.5 F Pulse Rate 110 H 114 H 110 H Respiratory 16 24 Rate Blood Pressure 112/74 92/58 O2 Sat by Pulse 90 92 Oximetry 09/01/18 11:48 Temperature 98.1 F Pulse Rate 108 H Respiratory 20 Rate Blood Pressure 117/74 O2 Sat by Pulse 97 Oximetry - Labs CBC & Chem 7: 08/30/18 04:54 09/01/18 04:39 Labs: Abnormal lab results 09/01/18 Range/Units 04:39 Chloride 97.3 L (98-107) mmol/L Glucose 108 H (65-100) mg/dL Calcium 8.1 L (8.4-10.2) mg/dL
[2018-09-02 05:22] LABS: BUN/Creatinine Ratio 15; Blood Urea Nitrogen 17 mg/dL (7-17); Calcium 8.3 mg/dL (8.4-10.2); Hemolysis Index 3
[2018-09-02] MEDS: LASIX IV SCH ×2 (05:55→17:27)
[2018-09-02] MEDS: COREG PO SCH (10:13)
[2018-09-02] MEDS: K-DUR PO SCH (10:13)
[2018-09-02] MEDS: PEPCID PO SCH (10:14)
[2018-09-02] MEDS: ZESTRIL PO SCH (10:14)
[2018-09-02] MEDS: SODIUM CHLORIDE FLUSH SYRINGE 10 ML IV SCH (10:14)
--- NOTE | 2018-09-02 11:04 | Discharge Summary ---
Providers - Providers Date of Admission: 08/29/18 19:50 Date of discharge: 09/02/18 Attending physician: GOLDY SOLO 08/29/18 23:09 Consult to Physician [CONS] Routine Comment: Consulting Provider: BEE CONNER Physician Instructions: Reason For Exam: CHF 08/29/18 23:14 Consult to Physician [CONS] Routine Comment: Consulting Provider: FRANSISCO POPE Physician Instructions: Reason For Exam: Eclampsia Primary care physician: SHOSHANA MOCK Hospitalization Reason for admission: shortness of breath Condition: Critical Pertinent studies: Chest x-ray showed cardiomegaly, congestive heart failure with slight pleural effusion CT angiogram of the chest that showed pleural effusion on the right with nondistended heart Echocardiogram with ejection fraction 30-35% with systolic dysfunction Procedures: none Hospital course: 33-year-old -[place] female with no significant past medical history comes in for increasing shortness of breath over the last 4-5 days. Patient had a 1 week ago and gave to her third child. patient started developing shortness of breath for the last 4-5 days. Shortness of breath on minimal exertion and orthopnea present. Slight chest pain present. Patient has been using albuterol inhaler thinking that it is her asthma. Patient had on August 22. No fever or chills. Patient was admitted and commenced on diuresis, L and lisinopril. CT scan of the chest showed cardiomegaly with pleural effusion. Chest x-ray shows pleural effusion. Also was obtained. Patient progressively improved. She is being discharged to cardiology and primary care physician in 3-5 days and 7 days respectively. Counseling on low salt diet and restricted fluid intake was admitted. Discussed with cardiology who had indicated yesterday that pt could be dischrged if her tachycardia improves. Heart rate is 70s. Shortness of breath has improved. Disposition: - TO HOME OR SELFCARE Time spent for discharge: 40 mins - Discharge Diagnoses (1) Acute HFrEF (heart failure with reduced ejection fraction) Status: Acute (2) delivery delivered Status: Acute Core Measure Documentation - Palliative Care Palliative Care/ Comfort Measures: Not Applicable - Core Measures Any of the following diagnoses?: none - VTE Discharge Requirements Deep Vein Thrombosis/Pulmonary Embolism Present on Admission: Yes Has pt received <5 days of overlap therapy or INR<2.0: Yes Anticoagulant overlap therapy prescribed at discharge: Yes Exam - Physical Exam Narrative exam: Constitutional: Well-nourished well-developed. In no distress Head: Normocephalic atraumatic Eyes: Pupils are equal round and reactive to light Nose: No enlarged turbinates, no septal deviation. Mouth: Moist mucous membranes. Neck: Supple no thyromegaly. No bruit. No JVD Heart: Regular rate and rhythm, S1-S2 normal. No rubs murmurs or gallop Lungs: Clear to auscultation bilaterally. no rales or rhonchi Abdomen: Soft, nontender. Bowel sound are present. Extremities: 1+ edema , no cyanosis, no clubbing. Neuro: Alert oriented Oriented x3. No focal sensory or motor deficit. Skin: No rashes or hyperpigmented spots Musculoskeletal system: No joint pain or swelling Hematological: No petechia or subcutanous hemorrhages. Immunological: No multiple septic spots on the skin Lymphatic: No generalized lymphadenopathy Psychiatry: Euthymic. Calm. - Constitutional Vitals: Temp Pulse Resp BP Pulse Ox 97.4 F L 70 95 H 106/71 100 09/02/18 08:07 09/02/18 08:07 09/02/18 08:07 09/02/18 08:07 09/02/18 04:00 Plan Activity: advance as tolerated, fall precautions Weight Bearing Status: Weight Bear as Tolerated Diet: low cholesterol, low salt Follow up with: SHOSHANA MOCK MD [Primary Care Provider] - 3-5 Days Forms: Discharge Signature Page Prescriptions: RX: Carvedilol [Coreg] 12.5 mg PO BID #60 tablet RX: Famotidine [Pepcid] 20 mg PO QDAY #30 tablet RX: Furosemide [Furosemide ORAL LIQ] 40 mg PO BID #60 ml RX: Lisinopril [Zestril TAB] 10 mg PO QDAY #30 tablet RX: Potassium Chloride [K-Dur] 20 meq PO Q12HR #60 tablet
[2018-09-02 11:31] VITALS: BP 106/71
--- NOTE | 2018-09-02 15:01 | Progress Note ---
Assessment and Plan cardiomyopathy Acute systolic CHF Bilateral pleural effusion likely due to the above - Echo was done and ejection fraction is 30-35% - Patient is on IV Lasix, carvedilol and lisinopril - Patient still has some shortness of breath - Cardiology consult appreciated DVT prophylaxis - On Lovenox Disposition - per clinical course 09/01/2018>patient clinically getteng better,still ni mild sinus tachycardia,continue present rx. 09/02/2018>patient's HR is better,clinically doing well.Agree with d/c on present medical therapy. Subjective Date of service: 09/02/18 Principal diagnosis: cardiomyopathy, acute systolic heart failure Interval history: Patient is feeling better,telemetryshowing mild sinus tachycardia. 09/02/2018>Patient is comfortable,c/o of some epigastric discomfort.Telemetry showing S.R in 90's. Objective Vital Signs Temp Pulse Resp BP BP Pulse Ox 09/02/18 08:07 97.4 F L 70 95 H 106/71 09/02/18 08:00 95 H 09/02/18 04:24 98.2 F 14 113/77 09/02/18 04:00 78 100 09/01/18 23:43 97.9 F 101 H 14 102/69 94 09/01/18 21:55 105 H 115/74 09/01/18 20:04 106 H 09/01/18 19:18 98.7 F 105 H 16 115/74 95 09/01/18 17:27 97.9 F 109 H 18 108/69 98 - Physical Examination General: No Apparent Distress HEENT: Positive: EOMI, Normocephaly, Mucus Membranes Moist Neck: Positive: neck supple, trachea midline, JVD/HJR (elevated) Cardiac: Positive: Reg Rate and Rhythm Lungs: Positive: Decreased Breath Sounds Neuro: Positive: Grossly Intact Abdomen: Positive: Soft, Active Bowel Sounds. Negative: Tender Skin: Positive: Clear. Negative: Rash Musculoskeletal: Normal Range of Motion Extremities: Absent: edema - Labs and Meds Comprehensive Metabolic Panel 09/02/18 Range/Units 04:26 Sodium 140 (137-145) mmol/L Potassium 3.8 (3.6-5.0) mmol/L Chloride 98.2 (98-107) mmol/L Carbon Dioxide 28 (22-30) mmol/L BUN 17 (7-17) mg/dL Creatinine 1.1 (0.7-1.2) mg/dL Glucose 103 H (65-100) mg/dL Calcium 8.3 L (8.4-10.2) mg/dL - Imaging and Cardiology EKG: image reviewed - EKG Sinus rhythms and dysrhythmias: sinus tachycardia
== END 2018-09-02 19:40 | disposition home or self-care (01) | DRG 776 ==
LOC: ED 16:22 → 4A 19:50
PROVIDERS: ADMIT Internal Medicine; ATTEND Family Medicine
DX: O90.3 Peripartum cardiomyopathy (principal); I11.0 Hypertensive heart disease with heart failure; I50.43 Acute on chronic combined systolic (congestive) and diastolic (congestive) heart failure; O15.2 Eclampsia complicating the puerperium; Z98.51 Tubal ligation status; O99.215 Obesity complicating the puerperium; E66.01 Morbid (severe) obesity due to excess calories; O99.53 Diseases of the respiratory system complicating the puerperium; J90 Pleural effusion, not elsewhere classified; I27.20 Pulmonary hypertension, unspecified; R00.0 Tachycardia, unspecified; I34.0 Nonrheumatic mitral (valve) insufficiency
CPT/HCPCS: 36415; 71045; 71275; 80048; 80053; 80307; 81001; 82140; 82550; 82553; 83036; 83880; 84484; 85025; 85379; 93005; 93010; 93306; 96365; 96375; G0378; J1940; J2405; J3475; Q9967

== ENCOUNTER 2021-04-04 20:19 | Emergency (ER) | payer MEDICAID ==
[2021-04-04] MEDS ORDERED: ACETAMINOPHEN 500 MG TAB PO ONE (21:46)
[2021-04-04] MEDS ORDERED: IBUPROFEN 600 MG TAB PO ONE (21:46)
--- NOTE | 2021-04-04 22:43 | XRay Report ---
CHEST PA AND LATERAL VIEWS INDICATION: COUGH. COMPARISON: 08/31/2018 FINDINGS: Support devices: None. Heart: Within normal limits. Lungs/Pleura: There is mild perihilar airspace disease in the right lung. Left lung is essentially cl ear. No pleural abnormality. IMPRESSION: 1. Perihilar right lung airspace disease is concerning for mild pneumonia. Signer Name: Bobby Craig MD Signed: 04/04/2021 10:39 PM Workstation Name: [id number]
--- NOTE | 2021-04-04 23:00 | Emergency Department Report ---
- General Chief Complaint: Chest Pain Stated Complaint: CHEST PAIN STUFFY NOSE Source: patient Mode of arrival: Ambulatory Limitations: No Limitations - History of Present Illness Initial Comments: Patient is a 36-year-old -[place] female with a history of CHF who presents to the ED with complaint of acute onset persistent nasal and sinus congestion, frontal sinus pressure and headache, persistent dry cough with pleuritic chest pain for the last 1 week, worse in the last 3 days. Patient also states that she has been feeling chills and intermittent fever for the last 24 hours. Patient states that she is not vaccinated against Covid 19 viral infection. Patient states that the symptoms have been persistent and worse in the last 24 hours. Patient denies dizziness, syncope, shortness of breath, nausea and vomiting, dizziness, syncope, sore throat, headache, abdominal pain, diarrhea, change in vision, dysuria, urinary frequency and urgency or back pain. MD Complaint: fever, cough, rhinorrhea, nasal congestion, sinus pain, other (Frontal headache) -: Sudden, days(s) (2) Severity: severe Severity scale (0 -10): 7 Quality: sharp, aching Consistency: constant Improves With: nothing Worsens With: nothing Context: sick contacts Associated Symptoms: denies other symptoms, fever, chills, myalgias, headache, rhinorrhea, nasal congestion, cough. denies: diaphoresis, chest pain, abdominal pain, nausea, vomiting, diarrhea, rash, confusion, right sweats, weight loss, epistaxis, hoarseness, ear pain Treatments Prior to Arrival: none - Related Data Home Medications Medication Instructions Recorded Confirmed Last Taken Albuterol Sulfate [Albuterol 0.63% 0.63 mg IH QID PRN 08/29/18 08/29/18 Unknown NEBS] Previous Rx's Medication Instructions Recorded Last Taken Type Famotidine [Pepcid] 20 mg PO QDAY #30 tablet 09/02/18 Unknown Rx Furosemide [Furosemide ORAL LIQ] 40 mg PO BID #60 ml 09/02/18 Unknown Rx Potassium Chloride [K-Dur] 20 meq PO Q12HR #60 tablet 09/02/18 Unknown Rx carvediloL [Coreg] 12.5 mg PO BID #60 tablet 09/02/18 Unknown Rx lisinopriL [Zestril TAB] 10 mg PO QDAY #30 tablet 02/03/19 Unknown Rx Benzonatate [Tessalon Perles] 100 mg PO Q8HR #30 capsule 04/04/21 Unknown Rx Cetirizine HCl [Zyrtec 10mg tab] 10 mg PO DAILY #30 tablet 04/04/21 Unknown Rx Ibuprofen [Motrin] 600 mg PO Q8H PRN #30 tablet 04/04/21 Unknown Rx levoFLOXacin [Levaquin TAB] 500 mg PO QDAY #10 tablet 04/04/21 Unknown Rx methylPREDNISolone [Medrol 4MG 4 mg PO DAILY #21 tab.ds.pk 04/04/21 Unknown Rx DOSEPAK (21 tabs)] Allergies Allergy/AdvReac Type Severity Reaction Status Date / Time No Known Allergies Allergy Verified 10/04/15 22:08 ED Review of Systems ROS: Stated complaint: CHEST PAIN STUFFY NOSE Other details as noted in HPI Constitutional: chills, fever, malaise. denies: weakness Eyes: denies: eye pain, eye discharge, vision change ENT: congestion, other (Frontal sinus pressure and headache). denies: ear pain, throat pain Respiratory: cough (Dry cough). denies: shortness of breath, wheezing Cardiovascular: denies: chest pain, palpitations Endocrine: no symptoms reported Gastrointestinal: denies: abdominal pain, nausea, diarrhea Genitourinary: denies: urgency, dysuria, discharge Musculoskeletal: denies: back pain, joint swelling, arthralgia Skin: denies: rash, lesions Neurological: headache (Frontal headache). denies: weakness, paresthesias Psychiatric: denies: anxiety, depression Hematological/Lymphatic: denies: easy bleeding, easy bruising ED Past Medical Hx - Past Medical History Hx Hypertension: No Hx Heart Attack/AMI: No Hx Congestive Heart Failure: Yes Hx Diabetes: No Hx Deep Vein Thrombosis: No Hx Liver Disease: No Hx Renal Disease: No Hx Sickle Cell Disease: No Hx Seizures: No Hx Asthma: No Hx COPD: No Hx HIV: No - Surgical History Hx Pacemaker: No Hx Internal Defibrillator: No Additional Surgical History: x 2 - Social History Smoking Status: Never Smoker Substance Use Type: None - Medications Home Medications: Home Medications Medication Instructions Recorded Confirmed Last Taken Type Albuterol Sulfate [Albuterol 0.63% 0.63 mg IH QID PRN 08/29/18 08/29/18 Unknown History NEBS] Famotidine [Pepcid] 20 mg PO QDAY #30 tablet 09/02/18 Unknown Rx Furosemide [Furosemide ORAL LIQ] 40 mg PO BID #60 ml 09/02/18 Unknown Rx Potassium Chloride [K-Dur] 20 meq PO Q12HR #60 tablet 09/02/18 Unknown Rx carvediloL [Coreg] 12.5 mg PO BID #60 tablet 09/02/18 Unknown Rx lisinopriL [Zestril TAB] 10 mg PO QDAY #30 tablet 09/02/18 Unknown Rx Benzonatate [Tessalon Perles] 100 mg PO Q8HR #30 capsule 04/04/21 Unknown Rx Cetirizine HCl [Zyrtec 10mg tab] 10 mg PO DAILY #30 tablet 04/04/21 Unknown Rx Ibuprofen [Motrin] 600 mg PO Q8H PRN #30 tablet 04/04/21 Unknown Rx levoFLOXacin [Levaquin TAB] 500 mg PO QDAY #10 tablet 04/04/21 Unknown Rx methylPREDNISolone [Medrol 4MG 4 mg PO DAILY #21 tab.ds.pk 04/04/21 Unknown Rx DOSEPAK (21 tabs)] ED Physical Exam - General Limitations: No Limitations General appearance: alert, in no apparent distress - Head Head exam: Present: atraumatic, normocephalic, normal inspection - Eye Eye exam: Present: normal appearance, PERRL, EOMI Pupils: Present: normal accommodation - ENT ENT exam: Present: normal orophraynx, mucous membranes moist, TM's normal bilaterally, normal external ear exam, other (Grossly congested nasal passages; palpable frontal and maxillary sinus tenderness) - Neck Neck exam: Present: normal inspection, full ROM. Absent: tenderness - Respiratory Respiratory exam: Present: normal lung sounds bilaterally. Absent: respiratory distress, wheezes, rales, rhonchi, chest wall tenderness, accessory muscle use, decreased breath sounds, other - Cardiovascular Cardiovascular Exam: Present: normal rhythm, tachycardia, normal heart sounds. Absent: systolic murmur, diastolic murmur, rubs, gallop - GI/Abdominal GI/Abdominal exam: Present: soft, normal bowel sounds. Absent: tenderness, guarding, hyperactive bowel sounds, hypoactive bowel sounds - Extremities Exam Extremities exam: Present: normal inspection, full ROM, normal capillary refill - Back Exam Back exam: Present: normal inspection, full ROM. Absent: tenderness, CVA tenderness (R), CVA tenderness (L), muscle spasm, paraspinal tenderness, vertebral tenderness - Neurological Exam Neurological exam: Present: alert, oriented X3, CN II-XII intact, normal gait, reflexes normal - Psychiatric Psychiatric exam: Present: normal affect, normal mood - Skin Skin exam: Present: warm, dry, intact, normal color. Absent: rash ED Course Vital Signs 04/04/21 04/04/21 21:16 23:55 Temperature 103.0 F H 99.1 F Pulse Rate 116 H 92 H Respiratory 18 17 Rate Blood Pressure 129/79 Blood Pressure 116/72 [Right] O2 Sat by Pulse 100 99 Oximetry ED Medical Decision Making - Radiology Data Radiology results: report reviewed, image reviewed [facility] [address] [place] [address] XRay Report Signed Patient: BARRY CERDA MR #: [id number] : 1985 Acct:[id number] Age/Sex: 36 / F ADM Date: 04/04/21 Loc: ED Attending Dr: Ordering Physician: REGGIE AVITIA Date of Service: 04/04/21 Procedure(s): XR chest routine 2V Accession Number(s): [id number] cc: REGGIE AVITIA Fluoro Time In Minutes: CHEST PA AND LATERAL VIEWS INDICATION: COUGH. COMPARISON: 08/31/2018 FINDINGS: Support devices: None. Heart: Within normal limits. Lungs/Pleura: There is mild perihilar airspace disease in the right lung. Left lung is essentially clear. No pleural abnormality. IMPRESSION: 1. Perihilar right lung airspace disease is concerning for mild pneumonia. Signer Name: Bobby Craig MD Signed: 04/04/2021 10:39 PM Workstation Name: [id number] Transcribed By: Dictated By: Bobby Craig MD Electronically Authenticated By: Bobby Craig MD Signed Date/Time: 04/04/212238 DD/ 36 TD/TT: - Medical Decision Making This is a 36-year-old -[place] female with a history of CHF who presents to the ED with complaint of acute onset persistent nasal and sinus congestion, frontal sinus pressure and headache, persistent dry cough with pleuritic chest pain for the last 1 week, worse in the last 3 days. Patient also states that she has been feeling chills and intermittent fever for the last 24 hours. Patient states that she is not vaccinated against Covid 19 viral infection. Patient states that the symptoms have been persistent and worse in the last 24 hours. In the ED, patient is alert and oriented x3 and is not in any distress. Patient is however tachycardic and febrile in triage. Patient was treated for fever in the ED and chest x-ray showed perihilar right lung airspace disease is concerning for mild pneumonia. Patient was treated in the ED also with Rocephin 1 g intramuscular injection and azithromycin 500 mg p.o. x1. On reevaluation, patient tachycardia and fever improved significantly. Patient's oxygen saturation is 100% in room air. Patient will discharge home on antibiotics and advised to follow-up with her primary care physician in 5 to 7 days for reevaluation or return to the ED immediately if symptoms get worse. - Differential Diagnosis Pneumonia; COVID-19; URI; sinusitis; bronchitis Critical care attestation.: If time is entered above; I have spent that time in minutes in the direct care of this critically ill patient, excluding procedure time. ED Disposition Clinical Impression: Fever and chills, Acute upper respiratory infection Community acquired pneumonia Qualifiers: Laterality: right Lung location: middle lobe of lung Qualified Code(s): J18.9 - Pneumonia, unspecified organism Disposition: 01 HOME / SELF CARE / HOMELESS Is pt being admited?: No Does the pt Need Aspirin: No Condition: Stable Instructions: Cough, Adult, [id number], Upper Respiratory Infection, Adult, [id number], Fever, Adult, [id number], Community-Acquired Pneumonia, Adult, [id number], Bacterial Pneumonia (ED) Additional Instructions: Chest x-ray shows right perihilar infiltrate consistent with mild pneumonia. Therefore take medication with food, drink plenty of fluids and follow-up with your primary care physician in 5 to 7 days for reevaluation. Return to the ED immediately if symptoms get worse. Prescriptions: levoFLOXacin [Levaquin TAB] 500 mg PO QDAY #10 tablet methylPREDNISolone [Medrol 4MG DOSEPAK (21 tabs)] 4 mg PO DAILY #21 tab.ds.pk Ibuprofen [Motrin] 600 mg PO Q8H PRN #30 tablet PRN Reason: Pain Benzonatate [Tessalon Perles] 100 mg PO Q8HR #30 capsule Cetirizine HCl [Zyrtec 10mg tab] 10 mg PO DAILY #30 tablet Referrals: [facility] [Provider Group] - 3-5 Days Forms: Work/School Release Form(ED) Time of Disposition: 23:04 Print Language: VINCENTIAN
[2021-04-04] MEDS ORDERED: AZITHROMYCIN 250 MG TAB PO ONE (23:06)
[2021-04-04] MEDS ORDERED: LIDOCAINE-MPF (1%) 10 MG/1 ML VIAL 5 ML INFILTRATI ONE (23:06)
[2021-04-05 00:36] VITALS: BP 116/72
== END 2021-04-04 23:55 | disposition home or self-care (01) ==
LOC: ED 20:19
DX: J18.8 Other pneumonia, unspecified organism (principal); J06.9 Acute upper respiratory infection, unspecified; R50.9 Fever, unspecified; I50.9 Heart failure, unspecified; Z98.890 Other specified postprocedural states
CPT/HCPCS: 71046; 96372; 99283; J0696